=== PATIENT | female | born 1985 | race Two or more races ===

== ENCOUNTER 2018-01-03 05:52 | Inpatient (IN) | payer BC ==
[2018-01-03] MEDS ORDERED: RINGERS SOLUTION,LACTATED 1,000 ML IV PRN (05:56)
[2018-01-03] MEDS ORDERED: PENICILLIN G-K 5 MILLION UNIT VIAL ONE ×3 (05:57→14:17)
[2018-01-03] MEDS ORDERED: PENICILLIN G POTASSIUM 5,000,000 UNIT in DEXTROSE 5%-WATER 100 ML IV ONE (06:10)
--- NOTE | 2018-01-03 07:27 | Admission Physical ---
Datetime Report Generated by CPN: 01/03/2018 07:26 CURRENT ADMISSION Chief Complaint: Suspected Ruptured Membranes Admit Impression : Term, Intrauterine ; Ruptured Membranes Admit Plan: Admit to Unit ALLERGIES Medication Allergies: No Medication Allergies: No Known Allergies (01/03/2018) Latex: No Latex Allergies OBSTETRICAL HISTORY EDC: 01/15/2018 00:00 : 1 Para: 0 Term: 0 : 0 SAB: 0 IAB: 0 Ectopic: 0 Livin Cesareans: 0 VBACs: 0 Multiple Births: 0 Gestational Diabetes: No Rh Sensitization: No Incompetent Cervix: No CHARITY: No Infertility: No ART Treatment: No Uterine Anomaly: No IUGR: No Hx Previous C/S: No Macrosomia: No Hx Loss/Stillborn: No PIH: No Hx : No Placenta Previa/Abruption: No Depression/PP Depression: No PTL/PROM: No Post Hemorrhage: No Current Procedures: Ultrasound Obstetrical History Comments: G1: current (intermittant benign arrhythmia) SEE RECORDS Alcohol: No Marijuana : No Cocaine: No Other Illicit Drugs: No Cigarettes: Never Smoker. [id number] MEDICAL HISTORY Diabetes: No Blood Transfusion: No Pulmonary Disease (Asthma, TB): No Breast Disease: No Hypertension: No Heading Maker Surgery: No Heart Disease: No Hosp/Surgery: No Autoimmune Disorder: No Anesthetic Complications: No Kidney Disease: No Abnormal Pap Smear: No Neuro/Epilepsy: No Psychiatric Disorders: No Other Medical Diseases: No Hepatitis/Liver Disease: No Significant Family History: No Varicosities/Phlebitis: No Trauma/Violence : No Thyroid Dysfunction: No Medical History Comments: abnormal pap w/colpo (wnl since); PCOS- metformin INFECTIOUS HISTORY Gonorrhea: No Genital Herpes: No Chlamydia: No Tuberculosis: No Syphilis: No Hepatitis: No HIV/AIDS Exposure: No Rash or Viral Illness: No HPV: No PHYSICAL EXAM General: Normal HEENT: Normal Neurologic: Normal Thyroid: Normal Heart: Normal Lungs: Normal Breast: Normal Back: Normal Abdomen: Normal Genitourinary Exam: Normal Extremities: Normal DTRs: Normal Pelvic Type: Adequate Vital Signs: Reviewed; Within Normal Limits VAGINAL EXAM Dilatation: 1 Effacement: 50 Station: -3 Contraction Comments: Acontracile MEMBRANES Pooling: Positive Membranes: Ruptured Amniotic Fluid Color: Clear FETUS A EGA: 38.2 Monitoring: External US FHR- Baseline: 140 Variability: Moderate 6-25bpm Accelerations: 15X15 Decelerations: None FHR Category: Category I Estimated Weight (gm): 3200 Presentation: Vertex Admit Comment: 39 yo G1, GBS positive, at 38 weeks and 2 day presents with gross rupture of membranes. Will admit, PCN for GBS, May need pitocin augmentatin. Expect vaginal delivery. PLANS FOR LABOR AND DELIVERY Labor and Delivery: None Pain Management: Medications; Epidural Feeding Preference: Breast Benefit of Breast Feed Discussed: Yes Circumcision: Yes INFORMED CONSENT Signature: with User ID: [email or web address] : I personally evaluated and examined the patient in conjunction with the MLP and agree with the assessment, treatment plan and disposition.
[2018-01-03 07:34] LABS: URINE AMPHETAMINES SCREEN NEGATIVE; URINE BARBITURATES SCREEN NEGATIVE; URINE BENZODIAZEPINES SCREEN NEGATIVE; URINE COCAINE SCREEN NEGATIVE; URINE MARIJUANA (THC) SCREEN NEGATIVE; URINE METHADONE SCREEN NEGATIVE; URINE PHENCYCLIDINE SCREEN NEGATIVE
[2018-01-03 08:10] LABS: ABSOLUTE EOSINOPHILS # (AUTO) 0.1 10^3/uL (0.0-0.6); ABSOLUTE LYMPHOCYTES (AUTO) 1.7 10^3/uL (0.5-4.7); ABSOLUTE MONOCYTES (AUTO) 0.4 10^3/uL (0.1-1.4); ABSOLUTE NEUT (AUTO) 6.7 10^3/uL (1.7-8.2); BASOPHILS % (AUTO) 0.3 % (0-2); EOSINOPHILS % (AUTO) 0.9 % (0-6); HEMATOCRIT 35.2 % (36.0-47.0); HEMOGLOBIN 11.9 g/dL (12.0-15.5); LYMPHOCYTES % (AUTO) 19.4 % (13-45); MEAN CORPUSCULAR HEMOGLOBIN 30.4 pg (27.0-33.4); MEAN CORPUSCULAR HGB CONC 33.7 g/dL (32.0-36.0); MEAN CORPUSCULAR VOLUME 90 fl (80-97); MONOCYTES % (AUTO) 4.3 % (3-13); PLATELET COUNT 175 10^3/uL (150-450); RED CELL DISTRIBUTION WIDTH 13.9 % (11.5-14.0); SEGMENTED NEUTROPHILS % (AUTO) 75.1 % (42-78); TOTAL CELLS COUNTED % (AUTO) 100 %
[2018-01-03 08:20] LABS: APPEARANCE,URINE CLEAR; BILIRUBIN,URINE NEGATIVE (NEGATIVE); COLOR,URINE STRAW; GLUCOSE, URINE NEGATIVE (NEGATIVE); KETONES,URINE NEGATIVE (NEGATIVE); LEUKOCYTE ESTERASE,URINE NEGATIVE (NEGATIVE); NITRITE,URINE NEGATIVE (NEGATIVE); PROTEIN,URINE 30 mg/dL (NEGATIVE); URINE SPECIFIC GRAVITY 1.004; UROBILINOGEN,URINE NEGATIVE mg/dL (<2.0)
[2018-01-03] MEDS ORDERED: OXYTOCIN/NORMAL SALINE 20 UNIT/1,000 ML RTUINJ ONE ×2 (08:47→17:07)
[2018-01-03] MEDS ORDERED: OXYTOCIN/NORMAL SALINE 20 UNIT/1,000 ML RTUINJ IV PRN ×2 (10:09→17:41)
[2018-01-03] MEDS: PENICILLIN G POTASSIUM 2,500,000 UNIT in DEXTROSE 5%-WATER 50 ML IV SCH ×2 (10:38→14:45)
[2018-01-03] MEDS ORDERED: OXYTOCIN 10 UNIT/ML VIAL ONE ×2 (13:54→17:07)
[2018-01-03] MEDS ORDERED: ONDANSETRON HCL INJ/PF 4 MG/2 ML SDV IV ONE (15:51)
[2018-01-03] MEDS ORDERED: ONDANSETRON HCL INJ/PF 4 MG/2 ML SDV ONE (15:53)
[2018-01-03] MEDS ORDERED: LIDOCAINE 1% INJ-PF (10 MG/ML) 30 ML SDV ONE (17:07)
[2018-01-03] MEDS ORDERED: MISOPROSTOL 0.2 MG TABLET ONE (17:07)
[2018-01-03] MEDS ORDERED: DIPH/PERTUSS(ACELL)/TETANUS VAC/PF 0.5 ML SYR (>=10YO) IM PRN (17:41)
[2018-01-03] MEDS ORDERED: ZOLPIDEM TARTRATE 5 MG TABLET PO PRN (17:41)
[2018-01-03] MEDS ORDERED: MEASLES,MUMPS&RUBELLA VACC/PF 0.5 ML VIAL SUBCUT PRN (17:41)
[2018-01-03] MEDS ORDERED: PROMETHAZINE HCL INJ 25 MG/1 ML VIAL IV PRN (17:41)
[2018-01-03] MEDS ORDERED: MAGNESIUM HYDROXIDE SUSP 30 ML UDCUP PO PRN (17:41)
[2018-01-03] MEDS ORDERED: NA PHOS,M-B/NA PHOS,DI-BA (ADULT) 133 ML ENEMA PR PRN (17:41)
[2018-01-03] MEDS ORDERED: ACETAMINOPHEN WITH CODEINE #3 TABLET PO PRN ×2 (17:41)
[2018-01-03] MEDS ORDERED: PROMETHAZINE HCL 25 MG SUPP.RECT PR PRN (17:41)
[2018-01-03] MEDS ORDERED: PSEUDOEPHEDRINE HCL 30 MG TABLET PO PRN (17:41)
[2018-01-03] MEDS ORDERED: DIBUCAINE 1% OINTMENT 28 GM TP PRN (17:41)
[2018-01-03] MEDS ORDERED: PROMETHAZINE HCL 25 MG TABLET PO PRN (17:41)
[2018-01-03] MEDS ORDERED: BENZOCAINE/MENTHOL AEROSOL SPRAY 56 ML TOP PRN (17:41)
[2018-01-03] MEDS ORDERED: DIPHENHYDRAMINE HCL 25 MG CAPSULE PO PRN (17:41)
[2018-01-03] MEDS ORDERED: ACETAMINOPHEN 650 MG SUPP.RECT PR PRN (17:41)
[2018-01-03] MEDS ORDERED: GLYCERIN/WITCH HAZEL LEAF 1 EACH MED..PAD TP PRN (17:41)
[2018-01-03] MEDS ORDERED: KETOROLAC TROMETHAMINE INJ/PF 30 MG/1 ML SDV ONE (17:54)
[2018-01-03] MEDS ORDERED: KETOROLAC TROMETHAMINE INJ/PF 30 MG/1 ML SDV IV ONE (18:02)
--- NOTE | 2018-01-03 19:17 | Warning Signs in Babies ---
VOD Warning Signs Datetime Report Generated by [facility]: 01/03/2018 19:17 VOD#608 -Warning Signs in Babies: Needs to be viewed. (01/03/2018 05:42:Homa Gloria RN)
--- NOTE | 2018-01-03 19:19 | Delivery Summary ---
Del Sum A-C Datetime Report Generated by CPN: 01/03/2018 19:19 DELIVERY PERSONNEL DELIVERY PERSONNEL: [id number] Delivery Doctor:: Pablo Teague MD Labor and Delivery Nurse:: Homa Gloria RNtest consultant Nurse:: GUI Villasenor Nursery Nurse:: Anna Hollis RN Accounting Consultant/PUBLIC SAFETY DIRECTOR: Norma Fayeaneda, ST MATERNAL INFORMATION Delivery Anesthesia: Local Medications After Delivery: Pitocin Drip 20 Units/1000ml NSS Estimated Blood Loss (ml): 250 Maternal Complications: None LABOR SUMMARY EDC: 01/15/2018 00:00 No. Babies in Womb: 1 Attempted: No Labor Anesthesia: None LABOR INFORMATION Reason for Induction: Premature Rupture of Membranes Onset of Labor: 01/03/2018 16:00 Complete Dilatation: 01/03/2018 17:17 Oxytocin: Augmentation Group B Beta Strep: Positive Antibiotics # of Doses: 3 Antibiotics Time of Last Dose: 1430 Name of Antibiotic Given: PCN Steroids Given: None Reason Steroids Not Administered: Not Applicable MEMBRANES Membranes Rupture Method: Spontaneous Rupture of Membranes: 01/03/2018 05:00 Length of Rupture (hr): 12.42 Amniotic Fluid Color: Clear Amniotic Fluid Amount: Small Amniotic Fluid Odor: Normal STAGES OF LABOR Stage 1 hr: 1 Stage 1 min: 17 Stage 2 hr: 0 Stage 2 min: 8 Stage 3 hr: 0 Stage 3 min: 3 Total Time in Labor hr: 1 Total Time in Labor min: 28 VAGINAL DELIVERY Episiotomy: None Laceration #1: Vaginal Laceration Extension #1: First Degree Laceration #2: Vaginal Laceration Extension #2: First Degree Laceration #3: None Laceration Extension #3: N/A Laceration Repair: Yes Laceration Repair Note: repair with 2 interrupted sutures of 3-0 chromic. Sponge Count Correct: Vaginal Sweep Performed Sharps Count Correct: Yes CSECTION DELIVERY Primary Indication: N/A Secondary Indication: N/A CSection Incidence: N/A Labor: N/A Elective: N/A CSection Incision: N/A BABY A INFORMATION Delivery Date/Time: 01/03/2018 17:25 Method of Delivery: Vaginal Born in Route : No : N/A Forceps: N/A Vacuum Extraction: N/A Shoulder Dystocia : No PRESENTATION/POSITION BABY A Presentation: Cephalic Cephalic Presentation: Vertex Vertex Position: Right Occipital Anterior Breech Presentation: N/A PLACENTA INFORMATION BABY A Placenta Delivery Time : 01/03/2018 17:28 Placenta Method of Delivery: Spontaneous Placenta Status: Delivered SCORES BABY A Heart Rate 1 min: >100 bpm Resp Effort 1 min: Good Cry Reflex Irritability 1 min: Cough or Sneeze or Pulls Away Muscle Tone 1 min: Active Motion Color 1 min: Body Lloyd, Extremities Blue Resuscitation Effort 1 min: Tactile Stimulation SCORE 1 MIN: 9 Heart Rate 5 min: >100 bpm Resp Effort 5 min: Good Cry Reflex Irritability 5 min: Cough or Sneeze or Pulls Away Muscle Tone 5 min: Active Motion Color 5 min: Body Lloyd, Extremities Blue Resuscitation Effort 5 min: N/A SCORE 5 MIN: 9 INFANT INFORMATION BABY A Gestational Age at Delivery: 38.2 Gestational Status: Early Term- 37- 38.6 Weeks Outcome : Liveborn Condition : Stable Sex: Male IDENTIFICATION BABY A Verification Date/Time: 01/03/2018 17:59 ID Band Number: [id number] Mother's Name Verified: Yes RN Verifying : B Baidy, RN/ D Bellavance, RN WEIGHT/LENGTH BABY A Infant Birthweight (gm): 2360 Infant Weight (lb): 5 Weight (oz): 3 Infant Length (in): 19.50 Length (cm): 49.53 CORD INFORMATION BABY A No. Cord Vessels: 3 Nuchal Cord : Around Neck x1, Loose Cord Blood Taken: Yes-For Storage (Mom's Blood type +) Suction: Mouth ASSESSMENT BABY A Infant Complications: None Physical Findings at Delivery: Molding of the Head Infant Respirations: Appears Normal Skin to Skin: Yes Community Health Educator/ALS Called : No Care By: B Baidy RN Transferred To: Remains with Mother BABY B INFORMATION : N/A SIGNATURES Signature: with User ID: [email or web address] : I was personally available for consultation and serving as supervising physician for the MLP. : I personally evaluated and examined the patient in conjunction with the MLP and agree with the assessment, treatment plan and disposition.
[2018-01-03] MEDS ORDERED: KETOROLAC TROMETHAMINE INJ/PF 30 MG/1 ML SDV IV SCH (22:00)
[2018-01-04] MEDS: KETOROLAC TROMETHAMINE INJ/PF 30 MG/1 ML SDV IV SCH ×3 (01:27→22:54)
[2018-01-04 07:52] LABS: HEMATOCRIT 31.8 % (36.0-47.0); HEMOGLOBIN 11.1 g/dL (12.0-15.5); MEAN CORPUSCULAR HEMOGLOBIN 30.9 pg (27.0-33.4); MEAN CORPUSCULAR HGB CONC 34.7 g/dL (32.0-36.0); MEAN CORPUSCULAR VOLUME 89 fl (80-97); RED BLOOD COUNT 3.57 10^6/uL (3.72-5.28); WHITE BLOOD COUNT 15.9 10^3/uL (4.0-10.5)
[2018-01-04 08:26] LABS: PLATELET COUNT 147 10^3/uL (150-450)
--- NOTE | 2018-01-04 09:07 | PDOC PROGRESS REPORT ---
Subjective-OB Progress Note for:: 01/04/18 Subjective: Doing well, baby doing well, voiding, Physical Exam (OB) Vital Signs: Temp Pulse Resp BP Pulse Ox 97.5 F 58 L 18 130/66 H 100 01/03/18 20:17 01/03/18 20:17 01/03/18 20:17 01/03/18 20:17 01/03/18 20:17 Intake & Output 01/03/18 01/04/18 01/05/18 06:59 06:59 06:59 Intake Total 50 Balance 50 Weight 105 kg - Lochia Lochia Amount: Small 10-25 ml Lochia Color: Rubra/Red - Abdomen Description: Soft, Round Hernia Present: No Fundal Description: Firm, Midline Fundal Height: u/u - u/2 Objective-Diagnostic Laboratory: 01/04/18 07:21 01/04/18 07:21 WBC 15.9 H RBC 3.57 L Hgb 11.1 L Hct 31.8 L MCV 89 MCH 30.9 MCHC 34.7 RDW 14.0 Plt Count 147 L Assessment and Plan(PN) - Assessment and Plan (1) GBS (group B Streptococcus carrier), +RV culture, currently Is this a current diagnosis for this admission?: Yes (2) Vaginal delivery Is this a current diagnosis for this admission?: Yes - Time Spent with Patient Time with patient: Less than 15 minutes Medications reviewed and adjusted accordingly: Yes - Disposition Anticipated Discharge: Home Within: within 24 hours
[2018-01-04] MEDS: FAMOTIDINE 20 MG TABLET PO SCH ×2 (10:07→22:53)
[2018-01-04] MEDS: FERROUS SULFATE 325 MG TABLET PO SCH ×3 (10:07→22:55)
[2018-01-04] MEDS: DOCUSATE SODIUM 100 MG CAPSULE PO SCH ×3 (10:07→22:55)
[2018-01-04] MEDS: PRENATAL VITAMIN W DHA CAPSULE PO SCH (10:08)
[2018-01-04] MEDS: SENNOSIDES/DOCUSATE 8.6-50 MG 1 EACH TABLET PO SCH (10:11)
[2018-01-04] MEDS: IBUPROFEN 800 MG TABLET PO SCH ×4 (11:57→22:55)
[2018-01-05] MEDS: IBUPROFEN 800 MG TABLET PO SCH (05:56)
--- NOTE | 2018-01-05 06:40 | PDOC PROGRESS REPORT ---
Subjective Progress Note for:: 01/05/18 Subjective:: Patient states that she ready to go home today; decreasing lochia. Denies chest pain, shortness of breath, fever/chills or nausea/vomiting. She is ambulating and voiding without difficulty. Breast-feeding is going well Reason For Visit: Physical Exam - Physical Exam Vital Signs: Temp Pulse Resp BP Pulse Ox 97.3 F 61 16 121/77 100 01/04/18 20:22 01/04/18 20:22 01/04/18 20:22 01/04/18 20:22 01/04/18 20:22 Intake & Output 01/03/18 01/04/18 01/05/18 06:59 06:59 06:59 Intake Total 50 Balance 50 Weight 105 kg General appearance: PRESENT: no acute distress, well-developed, well-nourished Respiratory exam: PRESENT: clear to auscultation marvin Cardiovascular exam: PRESENT: RRR GI/Abdominal exam: PRESENT: normal bowel sounds, soft Extremities exam: ABSENT: calf tenderness, clubbing, full ROM, joint swelling, pedal edema, tenderness, +1 edema, +2 edema, other Result Laboratory Results: 01/04/18 07:21 01/04/18 07:21 WBC 15.9 H RBC 3.57 L Hgb 11.1 L Hct 31.8 L MCV 89 MCH 30.9 MCHC 34.7 RDW 14.0 Plt Count 147 L Assessment & Plan - Diagnosis (1) GBS (group B Streptococcus carrier), +RV culture, currently Is this a current diagnosis for this admission?: Yes (2) Vaginal delivery Is this a current diagnosis for this admission?: Yes - Plan Summary Plan Summary: Plan: 1. day #2--status post normal spontaneous vaginal delivery-doing well 2. Discharge home today 3. Follow-up in the office in 4 weeks for exam or sooner if needed
[2018-01-05] MEDS: KETOROLAC TROMETHAMINE INJ/PF 30 MG/1 ML SDV IV SCH ×2 (08:21→12:35)
[2018-01-05 08:31] VITALS: BP 125/67
[2018-01-05] MEDS: DOCUSATE SODIUM 100 MG CAPSULE PO SCH (09:26)
[2018-01-05] MEDS: SENNOSIDES/DOCUSATE 8.6-50 MG 1 EACH TABLET PO SCH (09:26)
[2018-01-05] MEDS: PRENATAL VITAMIN W DHA CAPSULE PO SCH (09:26)
[2018-01-05] MEDS: FERROUS SULFATE 325 MG TABLET PO SCH (09:26)
[2018-01-05] MEDS: FAMOTIDINE 20 MG TABLET PO SCH (09:26)
== END 2018-01-05 13:35 | disposition home or self-care (01) | DRG 775 ==
LOC: LC 05:52 → LR 06:16 → 2S 19:50
PROVIDERS: ADMIT Obstetrics & Gynecology; ATTEND Obstetrics & Gynecology
PROC: 10E0XZZ Delivery of Products of Conception, External Approach (ICD-10-PCS; principal; 2018-01-03)
PROC: 0HQ9XZZ Repair Perineum Skin, External Approach (ICD-10-PCS; 2018-01-03)
PROC: 4A1HXCZ Monitoring of Products of Conception, Cardiac Rate, External Approach (ICD-10-PCS; 2018-01-03)
DX: O99.824 Streptococcus B carrier state complicating childbirth (principal); O70.0 First degree perineal laceration during delivery; O42.02 Full-term premature rupture of membranes, onset of labor within 24 hours of rupture; O69.81X0 Labor and delivery complicated by cord around neck, without compression, not applicable or unspecified; Z3A.38 38 weeks gestation of pregnancy; Z37.0 Single live birth
CPT/HCPCS: 36415; 80307; 81005; 85025; 85027; 86592; 86850; 86900; 86901; J1885; J2405; J2540; J2590; J3490

== ENCOUNTER 2020-02-23 11:27 | Outpatient (CLI) | payer BC ==
[2020-02-23 12:11] LABS: HEMOGLOBIN 12.4 g/dL (12.0-15.5); MEAN CORPUSCULAR HEMOGLOBIN 30.8 pg (27.0-33.4); MEAN CORPUSCULAR HGB CONC 33.6 g/dL (32.0-36.0); MEAN CORPUSCULAR VOLUME 92 fl (80-97); PLATELET COUNT 172 10^3/uL (150-450); RED BLOOD COUNT 4.03 10^6/uL (3.72-5.28); RED CELL DISTRIBUTION WIDTH 14.3 % (11.5-14.0); WHITE BLOOD COUNT 9.9 10^3/uL (4.0-10.5)
[2020-02-23 12:27] LABS: ALBUMIN 3.5 g/dL (3.5-5.0); ALKALINE PHOSPHATASE 101 U/L (38-126); ANION GAP 6 (5-19); ASPARTATE AMINO TRANSFERASE 26 U/L (14-36); BILIRUBIN,TOTAL 0.2 mg/dL (0.2-1.3); BLOOD UREA NITROGEN 14 mg/dL (7-20); CALCIUM 9.7 mg/dL (8.4-10.2); CARBON DIOXIDE 22 mmol/L (22-30); CHLORIDE 105 mmol/L (98-107); GLUCOSE 120 mg/dL (75-110); POTASSIUM 4.5 mmol/L (3.6-5.0); TOTAL PROTEIN 6.4 g/dL (6.3-8.2); URIC ACID 5.6 mg/dL (2.5-6.2)
[2020-02-23 13:20] LABS: URINE AMPHETAMINES SCREEN NEGATIVE; URINE BARBITURATES SCREEN NEGATIVE; URINE BENZODIAZEPINES SCREEN NEGATIVE; URINE COCAINE SCREEN NEGATIVE; URINE MARIJUANA (THC) SCREEN NEGATIVE; URINE METHADONE SCREEN NEGATIVE; URINE PHENCYCLIDINE SCREEN NEGATIVE
[2020-02-23 13:23] LABS: UR PRO/CREAT RATIO RESULT 0.3 mg/mg (0.0-0.2); URINE CREATININE 44.7 mg/dL (16-327); URINE PROTEIN 15.1 mg/dL (<12)
--- NOTE | 2020-02-23 13:56 | Non Stress Test Report ---
Non Stress Test Datetime Report Generated by CPN: 02/23/2020 13:56 DEMOGRAPHIC EGA NST: 38.1 INDICATION Indication for Study (NST) Other: IUP at 38.1 VITAL SIGNS Temperature - NST: 98.9 Pulse - NST: 86 RESP - NST: 18 NBPSYS NST: 126 NBPDIA NST: 82 MONITORING Monitor Explained: Monitor Explained; Test Explained; Patient Verbalized Understanding Time on Monitor: 02/23/2020 11:40 Time off Monitor: 02/23/2020 13:30 NST Duration: 110 NST INTERVENTIONS NST Interventions: PO Hydration Physician Notified NST: Dr. Ricks BABY A: [id number] BABY A Movement : Present Contraction Frequency : 0 FHR Baseline : 135 Accelerations : 15X15 Decelerations : Variable Variability : Moderate 6-25bpm NST Review: Meets Criteria for Reactive NST NST Review and Verified By : Sadia Noland RN NST Results: Reactive NST REPORT Report Trigger: Send Report
== END 2020-02-23 13:48 | disposition home or self-care (01) ==
LOC: LC 11:27
PROVIDERS: ATTEND Obstetrics & Gynecology Gynecology
DX: O14.93 Unspecified pre-eclampsia, third trimester (principal); Z3A.38 38 weeks gestation of pregnancy
CPT/HCPCS: 36415; 59025; 80053; 80307; 82570; 83615; 84156; 84550; 85027

== ENCOUNTER 2020-02-23 18:08 | Inpatient (IN) | payer BC ==
[2020-02-23] MEDS ORDERED: RINGERS SOLUTION,LACTATED 1,000 ML IV PRN (18:51)
[2020-02-23] MEDS ORDERED: DINOPROSTONE 10 MG VAGINAL INSERT.SR PV PRN (18:51)
[2020-02-23] MEDS ORDERED: RINGERS SOLUTION,LACTATED 1,000 ML IV ONE (18:53)
[2020-02-23] MEDS ORDERED: DINOPROSTONE 10 MG VAGINAL INSERT.SR ONE (19:30)
--- NOTE | 2020-02-23 19:44 | Admission Physical ---
Datetime Report Generated by CPN: 02/23/2020 19:44 CURRENT ADMISSION Chief Complaint: Other Indication for Induction: Eclampsia-Mild Admit Impression : Term, Intrauterine Admit Plan: Admit to Unit; Initiate Labor Induction Protocol ALLERGIES Medication Allergies: No Medication Allergies: adhesive (02/23/2020); nickel (02/23/2020) Latex: No Latex Allergies OBSTETRICAL HISTORY EDC: 03/07/2020 00:00 : 2 Para: 1 Term: 1 : 0 SAB: 0 IAB: 0 Ectopic: 0 Livin Cesareans: 0 VBACs: 0 Multiple Births: 0 Gestational Diabetes: No Rh Sensitization: No Incompetent Cervix: No CHARITY: No Infertility: No ART Treatment: No Uterine Anomaly: No IUGR: No Hx Previous C/S: No Macrosomia: No Hx Loss/Stillborn: No PIH: Yes Hx : No Placenta Previa/Abruption: No Depression/PP Depression: No PTL/PROM: No Post Hemorrhage: No Current Procedures: Ultrasound; NST Obstetrical History Comments: G1- - Boy-SGA G2- Current SEE RECORDS Alcohol: No Marijuana : No Cocaine: No Other Illicit Drugs: No Cigarettes: Never Smoker. [id number] MEDICAL HISTORY Diabetes: No Blood Transfusion: No Pulmonary Disease (Asthma, TB): No Breast Disease: No Hypertension: No Vp Genetic Surgery: No Heart Disease: No Hosp/Surgery: Yes Autoimmune Disorder: No Anesthetic Complications: No Kidney Disease: No Abnormal Pap Smear: No Neuro/Epilepsy: No Psychiatric Disorders: No Other Medical Diseases: No Hepatitis/Liver Disease: No Significant Family History: No Varicosities/Phlebitis: No Trauma/Violence : No Thyroid Dysfunction: No Medical History Comments: PCOS; Childbirth INFECTIOUS HISTORY Gonorrhea: No Genital Herpes: No Chlamydia: No Tuberculosis: No Syphilis: No Hepatitis: No HIV/AIDS Exposure: No Rash or Viral Illness: No HPV: No PHYSICAL EXAM General: Normal HEENT: Normal Neurologic: Normal Thyroid: Normal Heart: Normal Lungs: Normal Breast: Deferred Back: Normal Abdomen: Normal Genitourinary Exam: Normal Extremities: Normal DTRs: Normal Pelvic Type: Adequate FETUS A EGA: 38.1 PLANS FOR LABOR AND DELIVERY Labor and Delivery: None Other Pain Management Plans: Open to epidural Feeding Preference: Breast Benefit of Breast Feed Discussed: Yes Circumcision: N/A INFORMED CONSENT Signature: with User ID: [email or web address]
[2020-02-23 19:48] LABS: ABSOLUTE MONOCYTES (AUTO) 0.5 10^3/uL (0.1-1.4); ABSOLUTE NEUT (AUTO) 6.1 10^3/uL (1.7-8.2); BASOPHILS % (AUTO) 0.3 % (0-2); EOSINOPHILS % (AUTO) 0.5 % (0-6); HEMATOCRIT 35.7 % (36.0-47.0); LYMPHOCYTES % (AUTO) 23.6 % (13-45); MEAN CORPUSCULAR HEMOGLOBIN 30.5 pg (27.0-33.4); MEAN CORPUSCULAR HGB CONC 33.6 g/dL (32.0-36.0); MEAN CORPUSCULAR VOLUME 91 fl (80-97); MONOCYTES % (AUTO) 5.3 % (3-13); PLATELET COUNT 176 10^3/uL (150-450); RED BLOOD COUNT 3.93 10^6/uL (3.72-5.28); RED CELL DISTRIBUTION WIDTH 14.3 % (11.5-14.0); SEGMENTED NEUTROPHILS % (AUTO) 70.3 % (42-78); TOTAL CELLS COUNTED % (AUTO) 100 %; WHITE BLOOD COUNT 8.7 10^3/uL (4.0-10.5)
--- NOTE | 2020-02-24 08:28 | L&D Progress Notes ---
PROGRESS NOTES Datetime Report Generated by CPN: 02/24/2020 08:27 PROGRESS NOTE Comment: Irreg uc's, Cat 1 strip, comfortable LAST VAGINAL EXAM-NURSING Nursing Exam Dilitation: 1.0 Nursing Exam Effacement: 50 Nursing Exam Station: -2 SIGNATURE SIGNATURE: [id number];[id number];[id number] Assignment: Ally Forbes MD Signature: with User ID: [email or web address] : with User ID: [email or web address]
--- NOTE | 2020-02-24 08:52 | L&D Progress Notes ---
PROGRESS NOTES Datetime Report Generated by CPN: 02/24/2020 08:51 PROGRESS NOTE Impression: Normal Progression of Labor Procedures: Sterile Vag Exam Plan: Continue Present Management; Induction Informed Consent Obtained: Vaginal Delivery; Induction of Labor; Risks, Benefits and Alternatives Discussed Vital Signs : Reviewed Comment: cvx changed with cervidil. Begin pitocin. reassuring FWB. continue with IOL LAST VAGINAL EXAM-NURSING Nursing Exam Dilitation: 2.0 Nursing Exam Effacement: 50 Nursing Exam Station: -2 FETUS A FHR - Baseline: 145 Monitoring: External US Variability: Moderate 6-25bpm Accelerations: 15X15 Decelerations: None FHR Category: Category I SIGNATURE SIGNATURE: [id number];[id number];[id number] Assignment: Ally Forbes MD Signature: with User ID: [email or web address] : with User ID: [email or web address]
[2020-02-24] MEDS ORDERED: OXYTOCIN/0.9 % SODIUM CHLORIDE 30 UNIT/500 ML RTUINJ IV PRN ×2 (09:11→14:12)
[2020-02-24] MEDS ORDERED: LIDOCAINE 1% INJ-PF (10 MG/ML) 30 ML SDV ONE (09:35)
[2020-02-24] MEDS ORDERED: MISOPROSTOL 0.2 MG TABLET ONE (09:35)
[2020-02-24] MEDS ORDERED: OXYTOCIN/0.9 % SODIUM CHLORIDE 30 UNIT/500 ML RTUINJ ONE (09:35)
[2020-02-24] MEDS ORDERED: ONDANSETRON HCL INJ/PF 4 MG/2 ML SDV ONE (13:38)
[2020-02-24] MEDS ORDERED: ONDANSETRON HCL INJ/PF 4 MG/2 ML SDV IV PRN (13:40)
[2020-02-24] MEDS ORDERED: DIPH/PERTUSS(ACELL)/TETANUS VAC/PF 0.5 ML SYR (>=10YO) IM PRN (14:12)
[2020-02-24] MEDS ORDERED: BENZOCAINE/MENTHOL AEROSOL SPRAY 56 ML TOP PRN (14:12)
[2020-02-24] MEDS ORDERED: DIBUCAINE 1% OINTMENT 28 GM TP PRN (14:12)
[2020-02-24] MEDS ORDERED: PSEUDOEPHEDRINE HCL 30 MG TABLET PO PRN (14:12)
[2020-02-24] MEDS ORDERED: ZOLPIDEM TARTRATE 5 MG TABLET PO PRN (14:12)
[2020-02-24] MEDS ORDERED: NA PHOS,M-B/NA PHOS,DI-BA (ADULT) 133 ML ENEMA PR PRN (14:12)
[2020-02-24] MEDS ORDERED: PROMETHAZINE HCL 25 MG SUPP.RECT PR PRN (14:12)
[2020-02-24] MEDS ORDERED: MAGNESIUM HYDROXIDE SUSP 30 ML UDCUP PO PRN (14:12)
[2020-02-24] MEDS ORDERED: GLYCERIN/WITCH HAZEL LEAF 1 EACH MED..WIPE TP PRN (14:12)
[2020-02-24] MEDS ORDERED: PROMETHAZINE HCL 25 MG TABLET PO PRN (14:12)
[2020-02-24] MEDS ORDERED: ACETAMINOPHEN 325 MG TABLET PO PRN (14:12)
[2020-02-24] MEDS ORDERED: PROMETHAZINE HCL INJ 25 MG/1 ML VIAL IV PRN (14:12)
[2020-02-24] MEDS ORDERED: MEASLES,MUMPS&RUBELLA VACC/PF 0.5 ML VIAL SUBCUT PRN (14:12)
[2020-02-24] MEDS ORDERED: DIPHENHYDRAMINE HCL 25 MG CAPSULE PO PRN (14:12)
[2020-02-24] MEDS ORDERED: ACETAMINOPHEN WITH CODEINE #3 TABLET ONE (14:14)
[2020-02-24] MEDS ORDERED: IBUPROFEN 800 MG TABLET ONE (14:14)
--- NOTE | 2020-02-24 16:14 | Birth Certificate Data ---
Cert Data Datetime Report Generated by CPN: 02/24/2020 16:13 CERTIFICATE DATA Delivery Provider: Ally Forbes MD (02/23/2020 11:29:Anna Hollis RN) 47a. Care: Yes (02/23/2020 11:29:Loree RICHA Joyner) 47b. Date of First Visit: 08/03/2019 00:00 (02/23/2020 11:29:July RICHA Joyner) 48a. Number of Prev Live Births: 1 (02/23/2020 11:29:Loree Joyner RN) 48b. Now Livin (02/23/2020 11:29:Loree Joyner RN) 48c. Live Births Now : 0 (02/23/2020 11:29: system process) 48d. Date of Last Live : 01/03/2018 00:00 (02/23/2020 11:29:Loree Joyner RN) 48e. Losses: 0 (02/23/2020 11:29:Loree Joyner RN) RISK FACTORS IN THIS 49a. Diabetes: No (02/23/2020 11:29:Loree Joyner RN) 49b. Hypertension: No (02/23/2020 11:29:Loree Joyner RN) Type of Hypertension: Gestational (PIH, Pre-eclampsia) (02/23/2020 11:29:Loree Joyner RN) 49c. Previous Births: 0 (02/23/2020 11:29:Loree Joyner RN) 49d. Stillborns: No (02/23/2020 11:29:Loree Joyner RN) 49d. IUGR: No (02/23/2020 11:29:Loree Joyner RN) 49e. Infertility Treatment: No (02/23/2020 11:29:Loree Joyner RN) 49f. Previous Cesareans: 0 (02/23/2020 11:29:Loree Joyner RN) Mother's Height 50b. Height Inches: 69 (02/24/2020 14:53:QS system process) Mother's Weight 51a. Pre- Weight (lbs): 205 (02/23/2020 11:29:Loree Joyner RN) 51b. Weight at Delivery (lbs): 235 (02/24/2020 14:53:QS system process) 52. Dt Last Normal Menses Began: 06/01/2019 00:00 (02/23/2020 11:29:Loree Joyner RN) Infections Present/Treated 53a. Gonorrhea: No (02/23/2020 11:29:Loree Joyner RN) Results this Hospital Visit : Negative (02/23/2020 11:29:Loree Joyner RN) 53b. Syphilis: No (02/23/2020 11:29:Loree Joyner RN) Results this Hospital Visit: NONREACTIVE (02/23/2020 19:13:QS system process) 53c. Chlamydia: No (02/23/2020 11:29:Loree Joyner RN) Results this Hospital Visit: Negative (02/23/2020 11:29:Loree Joyner RN) 53d. Hepatitis B: No (02/23/2020 11:29:Loree Joyner RN) Results this Hospital Visit: Negative (02/23/2020 11:29:Loree Joyner RN) 53e. Hepatitis C: Negative (02/23/2020 11:29:Alecia Mcnally RN) 53h. Mother Tested for HBsAG: Yes (02/23/2020 11:29:Loree Joyner RN) 53i. Date Tested: 08/03/2019 00:00 (02/23/2020 11:29:Anna Hollis RN) 53j. Test Result: Negative (02/23/2020 11:29:Loree Joyner RN) Obstetric Procedures 54a, b, c. Obstetric Procedures: Ultrasound; NST (02/23/2020 11:29:Loree Joyner RN) Cigarette Smoking Cigarette Smoking: Never Smoker. [id number] (02/23/2020 11:29:Loree Joyner RN) 55a. 3 Months Before Preg - Ci (02/23/2020 11:29:Loree Joyner RN) 55a. Packs: 0 (02/23/2020 11:29:Alecia Mcnally RN) 55b. 1st Trimester of Preg- Ci (02/23/2020 11:29:Loree Joyner RN) 55b. Packs: 0 (02/23/2020 11:29:Alecia Mcnally RN) 55c. 2nd Trimester of Preg- Ci (02/23/2020 11:29:Loree Joyner RN) 55c. Packs: 0 (02/23/2020 11:29:Alecia Mcnally RN) 55d. 3rd Trimester of Preg- Ci (02/23/2020 11:29:Loree RICHA Joyner) 55d. Packs: 0 (02/23/2020 11:29:Alecia Mcnally RN) Onset of Labor 56a. PROM >12 Hrs: 1.13 (02/23/2020 11:29:QS system process) 56b. Precipitous Labor <3 Hrs: 1 (02/23/2020 11:29:QS system process) 56c. Prolonged Labor > 20 Hrs: 1 (02/23/2020 11:29:QS system process) 57a. Induction of Labor: Induction (02/23/2020 11:29:Anna Hollis RN) 57a. Induction of Labor: Cervidil (02/23/2020 19:36:Alecia Mcnally RN) 57c. Non-Vertex Presentation A: Vertex (02/23/2020 11:29:Anna Hollis RN) 57d. Steroids - Lung Mat: None (02/23/2020 11:29:Anna Hollis RN) 57d. Steroids - Lung Mat: Not Applicable (02/23/2020 11:29:Anna Hollis RN) 57g. Moderate/Heavy Meconium: Clear (02/24/2020 12:53:Anna Hollis RN) 57h. Intolerance of Labor: N/A (02/23/2020 11:29:Anna Hollis RN) : N/A (02/23/2020 11:29:Anna Hollis RN) 57i. Epidural/Spinal Anesthesia: None (02/23/2020 11:29:Anna Hollis RN) Method of Delivery 58a. Forceps - Unsuccessful A: N/A (02/23/2020 11:29:Anna Hollis RN) 58b. Vacuum - Unsuccessful A: N/A (02/23/2020 11:29:Anna Hollis RN) 58c. Presentation at 58c. Presentation at - A : Vertex (02/23/2020 11:29:Anna Hollis RN) 58c. Presentation at - A : N/A (02/23/2020 11:29:Anna Hollis RN) 58c. Presentation at - A : Cephalic (02/24/2020 08:47:Anna Hollis RN) Final Route and Method of Del 58d. Baby A Route/Delivery: Vaginal (02/24/2020 14:01:Anna Hollis RN) 58e. Trial of Labor Attempted: No (02/23/2020 11:29:Anna Hollis RN) 58e. Trial of Labor Attempted A: N/A (02/23/2020 11:29:Anna Hollis RN) Maternal Morbidity 59b. 3rd or 4th Degree Lacs: None (02/23/2020 11:29:Ally Forbes MD ([facility])) Birthweight Baby A: 2668 (02/23/2020 11:29:Anna Hollis RN) 60a. Pounds : 5 (02/23/2020 11:29:QS system process) 60b. Ounces: 14 (02/23/2020 11:29:QS system process) 61. GA at Delivery Baby A: 38.2 (02/23/2020 11:29:Anna Hollis RN) : Early Term- 37- 38.6 Weeks (02/23/2020 11:29:QS system process) 62a. 5 Minute Baby A: 9 (02/23/2020 11:29:QS system process)
--- NOTE | 2020-02-24 16:14 | Delivery Summary ---
Del Sum A-C Datetime Report Generated by CPN: 02/24/2020 16:13 DELIVERY PERSONNEL DELIVERY PERSONNEL: [id number] Delivery Doctor:: Ally Forbes MD Labor and Delivery Nurse:: Anna Hollis RN Nursery Nurse:: Yamileth Sebastian RN Compressor Mechanic/CARBONATING STONE CLEANER: Bita Jacobson, PAPER SAMPLE CLERK MATERNAL INFORMATION Delivery Anesthesia: None Medications After Delivery: Pitocin 30 Units in 500ml NS/D5W Estimated Blood Loss (ml): 100 Delivery QBL: 100 Delivery QBL Comment: 100 Maternal Complications: None Provider Comments: VFI delivered in BILL presentation. no nuchal cord. Shoulders and body delivered without difficulty. Cord doubly clamped and cut after to maternal abdomen. Placenta delivered intact spontaneously. FF at U. No perineal lacerations. Mother and baby stable upon provider leaving the room LABOR SUMMARY EDC: 03/07/2020 00:00 No. Babies in Womb: 1 Attempted: No Labor Anesthesia: None LABOR INFORMATION Reason for Induction: Pre-Eclampsia Onset of Labor: 02/24/2020 12:53 Complete Dilatation: 02/24/2020 13:55 Cervical Ripening Agents: Cervidil Oxytocin: Induction Group B Beta Strep: Negative Antibiotics # of Doses: n/a Name of Antibiotic Given: n/a Steroids Given: None Reason Steroids Not Administered: Not Applicable MEMBRANES Membranes Rupture Method: Spontaneous Rupture of Membranes: 02/24/2020 12:53 Length of Rupture (hr): 1.13 Amniotic Fluid Color: Clear Amniotic Fluid Amount: Small Amniotic Fluid Odor: Normal STAGES OF LABOR Stage 1 hr: 1 Stage 1 min: 2 Stage 2 hr: 0 Stage 2 min: 6 Stage 3 hr: 0 Stage 3 min: 5 Total Time in Labor hr: 1 Total Time in Labor min: 13 VAGINAL DELIVERY Episiotomy: None Laceration #1: None Laceration Extension #1: N/A Laceration Repair: Not Applicable Sponge Count Correct: Yes Sharps Count Correct: Yes CSECTION DELIVERY Primary Indication: N/A Secondary Indication: N/A CSection Incidence: N/A Labor: N/A Elective: N/A CSection Incision: N/A BABY A INFORMATION Infant Delivery Date/Time: 02/24/2020 14:01 Method of Delivery: Vaginal Nurse Controlled Delivery: No Born in Route : No : N/A Forceps: N/A Vacuum Extraction: N/A Shoulder Dystocia : No PRESENTATION/POSITION BABY A Presentation: Cephalic Cephalic Presentation: Vertex Vertex Position: Left Occipital Anterior Breech Presentation: N/A PLACENTA INFORMATION BABY A Placenta Delivery Time : 02/24/2020 14:06 Placenta Method of Delivery: Spontaneous Placenta Status: Delivered SCORES BABY A Heart Rate 1 min: >100 bpm Resp Effort 1 min: Good Cry Reflex Irritability 1 min: Cough or Sneeze or Pulls Away Muscle Tone 1 min: Active Motion Color 1 min: Body [place], Extremities Blue Resuscitation Effort 1 min: N/A SCORE 1 MIN: 9 Heart Rate 5 min: >100 bpm Resp Effort 5 min: Good Cry Reflex Irritability 5 min: Cough or Sneeze or Pulls Away Muscle Tone 5 min: Active Motion Color 5 min: Body [place], Extremities Blue Resuscitation Effort 5 min: N/A SCORE 5 MIN: 9 INFORMATION BABY A Gestational Age at Delivery: 38.2 Gestational Status: Early Term- 37- 38.6 Weeks Outcome : Liveborn Condition : Stable Sex: Female IDENTIFICATION BABY A Verification Date/Time: 02/24/2020 14:22 ID Band Number: [id number] Mother's Name Verified: Yes RN Verifying : B Baidy, RN/B Kavon, PAPER SAMPLE CLERK WEIGHT/LENGTH BABY A Birthweight (gm): 2668 Weight (lb): 5 Weight (oz): 14 Infant Length (in): 18.50 Infant Length (cm): 46.99 CORD INFORMATION BABY A No. Cord Vessels: 3 Nuchal Cord : N/A Cord Blood Taken: Yes-For Storage (Mom's Blood type +) Infant Suction: None ASSESSMENT BABY A Complications: None Physical Findings at Delivery: Within Normal Limits Infant Respirations: Appears Normal Physicist [employer]/ALS Called : No Care By: T Kendall RN Transferred To: Remains with Mother SIGNATURES Signature: with User ID: [email or web address]
[2020-02-24] MEDS: METFORMIN HCL 500 MG TABLET PO SCH ×2 (16:22→17:31)
[2020-02-24] MEDS: FERROUS SULFATE 325 MG TABLET PO SCH (17:31)
[2020-02-24] MEDS: DOCUSATE SODIUM 100 MG CAPSULE PO SCH (17:31)
[2020-02-24] MEDS: IBUPROFEN 800 MG TABLET PO SCH (21:41)
[2020-02-24] MEDS: ACETAMINOPHEN WITH CODEINE #3 TABLET PO PRN (21:42)
[2020-02-24] MEDS: FAMOTIDINE 20 MG TABLET PO SCH (21:42)
[2020-02-25] MEDS: ACETAMINOPHEN WITH CODEINE #3 TABLET PO PRN ×4 (03:32→20:29)
[2020-02-25] MEDS: IBUPROFEN 800 MG TABLET PO SCH ×3 (05:27→22:30)
--- NOTE | 2020-02-25 09:06 | PDOC PROGRESS REPORT ---
Subjective-OB Progress Note for:: 02/25/20 Subjective: OOB in room, feeling great, , no c/o Physical Exam (OB) Vital Signs: Temp Pulse Resp BP Pulse Ox 97.7 F 75 16 115/66 100 02/25/20 07:43 02/25/20 07:43 02/25/20 07:43 02/25/20 07:43 02/25/20 07:43 Intake & Output 02/24/20 02/25/20 02/26/20 06:59 06:59 06:59 Intake Total 2400 Balance 2400 Weight 107.1 kg - PIH/Pre-Eclampsia DTR's: 1 + Clonus: Negative Headache: Absent Epigastric Pain: No Visual Changes: No - Maternal Morbidity 59. Maternal Morbidity (serious complications experinced by the mother associated with labor and delivery: None of the above - Lochia Lochia Amount: Scant < 10 ml Lochia Color: Rubra/Red - Abdomen Description: Soft Hernia Present: No Fundal Description: Firm, Midline Fundal Height: u/u - u/2 Objective-Diagnostic Laboratory: 02/23/20 19:13 Assessment and Plan(PN) - Assessment and Plan (1) Vaginal delivery Is this a current diagnosis for this admission?: Yes (2) Pre-eclampsia Qualifiers: Trimester: third trimester Qualified Code(s): O14.93 - Unspecified pre- eclampsia, third trimester Is this a current diagnosis for this admission?: Yes - Time Spent with Patient Time with patient: Less than 15 minutes Medications reviewed and adjusted accordingly: Yes - Disposition Anticipated Discharge Disposition: Home, Self Care Anticipated Discharge Timeframe: within 24 hours
[2020-02-25 09:49] LABS: HEMATOCRIT 34.3 % (36.0-47.0); HEMOGLOBIN 11.3 g/dL (12.0-15.5); MEAN CORPUSCULAR HEMOGLOBIN 30.4 pg (27.0-33.4); MEAN CORPUSCULAR HGB CONC 33.1 g/dL (32.0-36.0); MEAN CORPUSCULAR VOLUME 92 fl (80-97); PLATELET COUNT 167 10^3/uL (150-450); RED BLOOD COUNT 3.73 10^6/uL (3.72-5.28); RED CELL DISTRIBUTION WIDTH 14.5 % (11.5-14.0); WHITE BLOOD COUNT 9.2 10^3/uL (4.0-10.5)
[2020-02-25] MEDS: DOCUSATE SODIUM 100 MG CAPSULE PO SCH ×2 (09:55→17:34)
[2020-02-25] MEDS: SENNOSIDES/DOCUSATE 8.6-50 MG 1 EACH TABLET PO SCH (09:55)
[2020-02-25] MEDS: METFORMIN HCL 500 MG TABLET PO SCH ×3 (09:55→17:33)
[2020-02-25] MEDS: FERROUS SULFATE 325 MG TABLET PO SCH ×2 (09:56→17:34)
[2020-02-25] MEDS: FAMOTIDINE 20 MG TABLET PO SCH ×2 (09:56→22:30)
[2020-02-25] MEDS: PRENATAL VITAMIN W DHA CAPSULE PO SCH (09:56)
[2020-02-26] MEDS: ACETAMINOPHEN WITH CODEINE #3 TABLET PO PRN ×2 (05:11→10:06)
[2020-02-26] MEDS: IBUPROFEN 800 MG TABLET PO SCH (05:12)
[2020-02-26] MEDS: FERROUS SULFATE 325 MG TABLET PO SCH (09:50)
[2020-02-26] MEDS: SENNOSIDES/DOCUSATE 8.6-50 MG 1 EACH TABLET PO SCH (09:50)
[2020-02-26] MEDS: METFORMIN HCL 500 MG TABLET PO SCH (09:50)
[2020-02-26] MEDS: FAMOTIDINE 20 MG TABLET PO SCH (09:50)
[2020-02-26] MEDS: DOCUSATE SODIUM 100 MG CAPSULE PO SCH (09:50)
[2020-02-26] MEDS: PRENATAL VITAMIN W DHA CAPSULE PO SCH (09:50)
--- NOTE | 2020-02-26 10:20 | PDOC PROGRESS REPORT ---
Subjective-OB Progress Note for:: 02/26/20 Subjective: Doing well, no c/o, , ready to go home, [facility]sb at [facility] holding baby Physical Exam (OB) Vital Signs: Temp Pulse Resp BP Pulse Ox 97.6 F 72 16 116/70 100 02/26/20 09:00 02/26/20 09:00 02/26/20 09:00 02/26/20 09:00 02/26/20 09:00 Intake & Output 02/25/20 02/26/20 02/27/20 06:59 06:59 06:59 Intake Total 2400 2900 Balance 2400 2900 - PIH/Pre-Eclampsia DTR's: 1 + Clonus: Negative Headache: Absent Epigastric Pain: No Visual Changes: No - Maternal Morbidity 59. Maternal Morbidity (serious complications experinced by the mother associated with labor and delivery: None of the above - Lochia Lochia Amount: Scant < 10 ml Lochia Color: Serosa/Brown - Abdomen Description: Soft Hernia Present: No Fundal Description: Firm, Midline Fundal Height: u/u - u/2 Objective-Diagnostic Laboratory: 02/25/20 09:40 Assessment and Plan(PN) - Assessment and Plan (1) Vaginal delivery Is this a current diagnosis for this admission?: Yes (2) Pre-eclampsia Qualifiers: Trimester: third trimester Qualified Code(s): O14.93 - Unspecified pre- eclampsia, third trimester Is this a current diagnosis for this admission?: Yes - Time Spent with Patient Time with patient: Less than 15 minutes Medications reviewed and adjusted accordingly: Yes - Disposition Anticipated Discharge Disposition: Home, Self Care Anticipated Discharge Timeframe: within 24 hours
--- NOTE | 2020-02-26 10:26 | PDOC DISCHARGE SUMMARY ---
Impression - Admit/DC Date/PCP Admission Date/Primary Care Provider: 02/23/20 18:08 DARBY SCHWARTZ MD Discharge Date: 02/26/20 - Discharge Diagnosis (1) Vaginal delivery Is this a current diagnosis for this admission?: Yes (2) Pre-eclampsia Is this a current diagnosis for this admission?: Yes - Additional Information Resuscitation Status: Full Code Discharge Diet: As Tolerated, Regular Discharge Activity: Activity As Tolerated, Pelvic Rest Referrals: DARBY SCHWARTZ MD [Primary Care Provider] - Home Medications: Vit,Calc76/Iron/Folic [Pnv 29-1 Tablet] 1 tab PO DAILY 01/03/18 Metformin HCl 500 mg PO TID 02/23/20 HPI Gestational Age: 38.2 Reason(s) for Admission: Induction of Labor, PIH Procedures: NST, Ultrasound Intrapartum Procedure(s): Spontaneous Vaginal Delivery Hospital Course Hospital Course: routine 59. Maternal Morbidity (serious complications experinced by the mother associated with labor and delivery: None of the above Results Laboratory Results: WBC 9.2 10^3/uL (4.0-10.5) 02/25/20 09:40 RBC 3.73 10^6/uL (3.72-5.28) 02/25/20 09:40 Hgb 11.3 g/dL (12.0-15.5) L 02/25/20 09:40 Hct 34.3 % (36.0-47.0) L 02/25/20 09:40 MCV 92 fl (80-97) 02/25/20 09:40 MCH 30.4 pg (27.0-33.4) 02/25/20 09:40 MCHC 33.1 g/dL (32.0-36.0) 02/25/20 09:40 RDW 14.5 % (11.5-14.0) H 02/25/20 09:40 Plt Count 167 10^3/uL (150-450) 02/25/20 09:40 Lymph % (Auto) 23.6 % (13-45) 02/23/20 19:13 [place] % (Auto) 5.3 % (3-13) 02/23/20 19:13 Eos % (Auto) 0.5 % (0-6) 02/23/20 19:13 Baso % (Auto) 0.3 % (0-2) 02/23/20 19:13 Absolute Neuts (auto) 6.1 10^3/uL (1.7-8.2) 02/23/20 19:13 Absolute Lymphs (auto) 2.0 10^3/uL (0.5-4.7) 02/23/20 19:13 Absolute Monos (auto) 0.5 10^3/uL (0.1-1.4) 02/23/20 19:13 Absolute Eos (auto) 0.0 10^3/uL (0.0-0.6) 02/23/20 19:13 Absolute Basos (auto) 0.0 10^3/uL (0.0-0.2) 02/23/20 19:13 Seg Neutrophils % 70.3 % (42-78) 02/23/20 19:13 RPR NONREACTIVE (NONREACTIVE) 02/23/20 19:13 Blood Type A POSITIVE 02/23/20 19:13 Antibody Screen NEGATIVE 02/23/20 19:13 Plan Health Concerns: BP Plan of Treatment: Rev S&S to report Goals: no complications Time Spent: Less than 30 Minutes
[2020-02-26 11:40] VITALS: BP 126/72
== END 2020-02-26 12:11 | disposition home or self-care (01) | DRG 807 ==
LOC: LR 18:08 → 2S 02-24 17:01
PROVIDERS: ADMIT Student in an Organized Health Care Education/Training Program; ATTEND Student in an Organized Health Care Education/Training Program
PROC: 10E0XZZ Delivery of Products of Conception, External Approach (ICD-10-PCS; principal; 2020-02-23)
PROC: 3E033VJ Introduction of Other Hormone into Peripheral Vein, Percutaneous Approach (ICD-10-PCS; 2020-02-23)
DX: O14.04 Mild to moderate pre-eclampsia, complicating childbirth (principal); Z37.0 Single live birth; Z20.828 Contact with and (suspected) exposure to other viral communicable diseases; Z91.048 Other nonmedicinal substance allergy status; Z3A.38 38 weeks gestation of pregnancy
CPT/HCPCS: 36415; 85027; 86592; 86850; 86900; 86901; 88307; J2405; J2590; J3490